=== PATIENT | female | born 1955 | race Caucasian/White ===

== ENCOUNTER 2016-08-01 06:21 | Day surgery (SDC) | payer BC ==
--- NOTE | ~2016-08-01 | EGD ---
EGD REPORT [facility] [address] [address] NAME: HELEN HORAN : [birth year] STATUS : [facility]#: [id number] AGE: 61 ADM/REG DATE : 08/01/16 MR#: [id number] REPORT SERV DATE: 08/07/16 DICTATED BY: DATE: REPORT STATUS : Draft TRANSCRIBED BY: [employer] DATE: 08/07/16 [facility] Patient Name: Helen Horan Date of : 1955 Attending MD: JOHN HIGGINS MD Procedure Date No Time: 08/01/2016 Procedure: Colonoscopy Indications: High risk colon cancer surveillance: Personal history of non-advanced adenoma Referring MD: Aggie Madison Medicines: Monitored Anesthesia Care Complications: No immediate complications. Procedure: Pre-Anesthesia Assessment: - ASA Grade Assessment: II - A patient with mild systemic disease. After I obtained informed consent, the scope was passed under direct vision. Throughout the procedure, the patient's blood pressure, pulse, and oxygen saturations were monitored continuously. The PCF H190L [id number] was introduced through the anus and advanced to the cecum, identified by appendiceal orifice and ileocecal valve. The colonoscopy was performed without difficulty. The patient tolerated the procedure well. The quality of the bowel preparation was excellent. Findings: The perianal and digital rectal examinations were normal. Multiple small-mouthed diverticula were found in the entire colon. A sessile polyp was found in the sigmoid colon. The polyp was diminutive in size. The polyp was removed with a cold biopsy forceps. Resection and retrieval were complete. No other significant abnormalities were identified in a careful examination of the remainder of the colon. There is no endoscopic evidence of bleeding, inflammation, mass, ulcerations or angioectasia in the entire colon. Internal hemorrhoids were found during retroflexion. No additional abnormalities were found on retroflexion. Impression: - Diverticulosis in the entire examined colon. - One diminutive polyp in the sigmoid colon. Resected and retrieved. - Internal hemorrhoids. Recommendation: - Patient has a contact number available for emergencies. The signs and symptoms of potential delayed EGD REPORT [address] [address] NAME: HELEN HORAN : [birth year] STATUS : [facility] [place] [place] PAT#: [id number] AGE: 61 ADM/REG DATE : 08/01/16 MR#: [id number] REPORT SERV DATE: 08/07/16 DICTATED BY: DATE: REPORT STATUS : Draft TRANSCRIBED BY: [email or web address] DATE: 08/07/16 complications were discussed with the patient. Return to normal activities tomorrow. Written discharge instructions were provided to the patient. - High fiber diet. - Discharge patient to home. - Continue present medications. - Await pathology results. - Repeat colonoscopy in 5 years for surveillance. Procedure Code(s): --- Professional --- 13875, Colonoscopy, flexible, proximal to splenic flexure; with biopsy, single or multiple Diagnosis Code(s): --- Professional --- K64.8, Other hemorrhoids K57.30, Diverticulosis of large intestine without perforation or abscess without bleeding D12.5, Benign neoplasm of sigmoid colon Z86.010, Personal history of colonic polyps CPT copyright 2013 [employer]. All rights reserved. The codes documented in this report are preliminary and upon financial auditor review may be revised to meet current compliance requirements. JOHN HIGGINS MD 08/01/2016 7:49 AM This report has been signed electronically. Number of Addenda: 0 Note Initiated On: 08/01/2016 7:20 AM Scope Withdrawal Time 0 hours 11 minutes 0 seconds [address] [id number]
--- NOTE | ~2016-08-01 | EGD ---
EGD REPORT [facility] [address] [address] NAME: HELEN HORAN : [birth year] STATUS : [facility] [place] PAT#: [id number] AGE: 61 ADM/REG DATE : 08/01/16 MR#: [id number] REPORT SERV DATE: 08/01/16 DICTATED BY: DATE: REPORT STATUS : Draft TRANSCRIBED BY: [employer] DATE: 08/01/16 [facility] Patient Name: Helen Horan Date of : 1955 Attending MD: JOHN HIGGINS MD Procedure Date No Time: 08/01/2016 Procedure: Colonoscopy Indications: High risk colon cancer surveillance: Personal history of non-advanced adenoma Referring MD: Aggie Madison Medicines: Monitored Anesthesia Care Complications: No immediate complications. Procedure: Pre-Anesthesia Assessment: - ASA Grade Assessment: II - A patient with mild systemic disease. After I obtained informed consent, the scope was passed under direct vision. Throughout the procedure, the patient's blood pressure, pulse, and oxygen saturations were monitored continuously. The PCF H190L [id number] was introduced through the anus and advanced to the cecum, identified by appendiceal orifice and ileocecal valve. The colonoscopy was performed without difficulty. The patient tolerated the procedure well. The quality of the bowel preparation was excellent. Findings: The perianal and digital rectal examinations were normal. Multiple small-mouthed diverticula were found in the entire colon. A sessile polyp was found in the sigmoid colon. The polyp was diminutive in size. The polyp was removed with a cold biopsy forceps. Resection and retrieval were complete. No other significant abnormalities were identified in a careful examination of the remainder of the colon. There is no endoscopic evidence of bleeding, inflammation, mass, ulcerations or angioectasia in the entire colon. Internal hemorrhoids were found during retroflexion. No additional abnormalities were found on retroflexion. Impression: - Diverticulosis in the entire examined colon. - One diminutive polyp in the sigmoid colon. Resected and retrieved. - Internal hemorrhoids. Recommendation: - Patient has a contact number available for emergencies. The signs and symptoms of potential delayed EGD REPORT [address] [place]. [address] NAME: HELEN HORAN : [birth year] STATUS : [facility] [place] PAT#: [id number] AGE: 61 ADM/REG DATE : 08/01/16 MR#: [id number] REPORT SERV DATE: 08/01/16 DICTATED BY: DATE: REPORT STATUS : Draft TRANSCRIBED BY: [employer] DATE: 08/01/16 complications were discussed with the patient. Return to normal activities tomorrow. Written discharge instructions were provided to the patient. - High fiber diet. - Discharge patient to home. - Continue present medications. - Await pathology results. - Repeat colonoscopy in 5 years for surveillance. Procedure Code(s): --- Professional --- 56973, Colonoscopy, flexible, proximal to splenic flexure; with biopsy, single or multiple Diagnosis Code(s): --- Professional --- K64.8, Other hemorrhoids K57.30, Diverticulosis of large intestine without perforation or abscess without bleeding D12.5, Benign neoplasm of sigmoid colon Z86.010, Personal history of colonic polyps CPT copyright 2013 [employer]. All rights reserved. The codes documented in this report are preliminary and upon net mobile developer review may be revised to meet current compliance requirements. JOHN HIGGINS MD 08/01/2016 7:49 AM This report has been signed electronically. Number of Addenda: 0 Note Initiated On: 08/01/2016 7:20 AM Scope Withdrawal Time 0 hours 11 minutes 0 seconds [address] [id number]
[~2016-08-01 06:21] MED LIST: ADVIL PO; COREG3 PO; CRESTOR10 PO; DIOV160 PO; DIOVAN HCT320 MG/25 PO; DIOVAN320 MG PO; DSS PO; EFFIENT10 PO; FERROUS SULF324 MG PO; FOLIC PO; HALF81 PO; LIPITOR40 PO; LISINOPRIL40 MG PO; LOP25 PO; MULTIPLE VIT PO; NTG150 SL; SENOKOTS PO; TYLENOL PM PO; ULTRAM50 PO
== END 2016-08-01 23:59 | disposition home or self-care (01) ==
LOC: DMU 06:21
PROVIDERS: Internal Medicine Gastroenterology
PROC: 0DBN8ZX Excision of Sigmoid Colon, Via Natural or Artificial Opening Endoscopic, Diagnostic (ICD-10-PCS; principal; 2016-08-01 07:30)
DX: Z12.11 Encounter for screening for malignant neoplasm of colon (principal); K63.5 Polyp of colon; K64.8 Other hemorrhoids; K57.30 Diverticulosis of large intestine without perforation or abscess without bleeding; I10 Essential (primary) hypertension; I25.10 Atherosclerotic heart disease of native coronary artery without angina pectoris; Z88.5 Allergy status to narcotic agent; Z86.010 Personal history of colon polyps; Z95.5 Presence of coronary angioplasty implant and graft; Z90.89 Acquired absence of other organs; Z90.710 Acquired absence of both cervix and uterus; Z90.49 Acquired absence of other specified parts of digestive tract; Z98.890 Other specified postprocedural states
CPT/HCPCS: 88305